=== PATIENT | male | born 1960 | race African-American/Black ===

== ENCOUNTER 2017-10-30 16:34 | Inpatient (IN) | payer OTHER ==
[2017-10-30 17:39] VITALS: BMI 21.2
--- NOTE | 2017-10-30 19:32 | HP ---
COWS - Scale Resting Pulse: 1= [place] 81-100 Sweatin= Chills/Flushing Restless Observation: 3= Extraneous Movement Pupil Size: 0= Normal to Room Light Bone or Joint Aches: 2= Severe Diffuse Aches Runny Nose/ Eye Tearin= Runny Nose/Eyes GI Upset > 30mins: 3= Vomiting/Diarrhea Tremor Observation: 2= Slight Tremor Visible Yawning Observation: 0= None Anxiety or Irritability: 2=Irritable/Anxious Goose Flesh Skin: 0=Smooth Skin COWS Score: 16 CIWA Score - CIWA Score Nausea/Vomitin Muscle Tremors: 4-Moderate,w/Arms Extend Anxiety: 4-Mod. Anxious/Guarded Agitation: 4-Moderately Restless Paroxysmal Sweats: 1-Minimal Palms Moist Orientation: 0-Oriented Tacttile Disturbances: 0-None Auditory Disturbances: 0-None Visual Disturbances: 0-None Headache: 0-None Present CIWA-Ar Total Score: 15 Admission ROS BHS - HPI Chief Complaint: WITHDRAWAL SX Allergies/Adverse Reactions: Allergies Allergy/AdvReac Type Severity Reaction Status Date / Time No Known Allergies Allergy Verified 10/30/17 18:48 History of Present Illness: 57 YEARS OLD MALE WITH LONG HISTORY OF ALCOHOL HEROIN NICOTINE DEPENDENC HAS HYPERTENSION AND DEPRESSION IS ADMITTED TO DETOX Exam Limitations: No Limitations - Ebola screening Have you traveled outside of the country in the last 21 days: No Have you had contact with anyone from an Ebola affected area: No Have you been sick,other than usual withdrawal symptoms: No Do you have a fever: No - Review of Systems Constitutional: Loss of Appetite, Changes in sleep, Unintentional Wgt. Loss, Unexplained wgt Loss EENT: reports: Blurred Vision (EYE GLASSES) Respiratory: reports: No Symptoms reported Cardiac: reports: No Symptoms Reported GI: reports: Diarrhea, Nausea, Poor Appetite, Poor Fluid Intake, Vomiting, Abdominal cramping : reports: No Symptoms Reported Musculoskeletal: reports: Back Pain, Joint Pain, Muscle Pain, Neck Pain Integumentary: reports: No Symptoms Reported Neuro: reports: Tremors Endocrine: reports: No Symptoms Reported Hematology: reports: No Symptoms Reported Psychiatric: reports: Judgement Intact, Orientated x3, Anxious, Depressed Other Systems: Reviewed and Negative Patient History - Patient Medical History Hx Anemia: No Hx Asthma: No Hx Chronic Obstructive Pulmonary Disease (COPD): No Hx Cancer: No Hx Cardiac Disorders: No Hx Congestive Heart Failure: No Hx Hypertension: Yes Hx Hypercholesterolemia: No Hx Pacemaker: No HX Cerebrovascular Accident: No Hx Seizures: No Hx Dementia: No Hx Diabetes: No Hx Gastrointestinal Disorders: No Hx Liver Disease: No Hx Genitourinary Disorders: No Hx Sexually Transmitted Disorders: No Hx Renal Disease (ESRD): No Hx Thyroid Disease: No Hx Human Immunodeficiency Virus (HIV): No Hx Hepatitis C: No Hx Depression: Yes Hx Suicide Attempt: No Hx Bipolar Disorder: No Hx Schizophrenia: No - Patient Surgical History Past Surgical History: Yes Hx Neurologic Surgery: Yes (2007 RIGHT PERIATAL) Hx Cataract Extraction: No Hx Cardiac Surgery: No Hx Lung Surgery: No Hx Breast Surgery: No Hx Breast Biopsy: No Hx Abdominal Surgery: No Hx Appendectomy: No Hx Cholecystectomy: No Hx Genitourinary Surgery: No Hx Orthopedic Surgery: Yes (RIGHT ANKLE 2006) Anesthesia Reaction: No - PPD History Previous Implant?: Yes Documented Results: Negative w/o proof Implanted On Prior R Admission?: No PPD to be Administered?: Yes - Smoking Cessation Smoking history: Current every day smoker Aproximately how many cigarettes per day: 5 Cigars Per Day: 0 Hx Chewing Tobacco Use: No Initiated information on smoking cessation: Yes 'Breaking Loose' booklet given: 10/30/17 - Substance & Tx. History Hx Alcohol Use: Yes Hx Substance Use: Yes Substance Use Type: Alcohol, Heroin Hx Substance Use Treatment: Yes (08/2017 [facility]) - Substances Abused Alcohol Route: Oral Frequency: Daily Amount used: beer - 6 pkX 40OZ Age of first use: 19 Date of Last Use: 10/30/17 Heroin Route: Inhalation Frequency: Daily Amount used: 5 bags Age of first use: 20 Date of Last Use: 10/29/17 Family Disease History - Family Disease History Family Disease History: CA: Father (), Respiratory: Mother (), Other: Father, Mother Admission Physical Exam BHS - Vital Signs Vital Signs: Vital Signs - 24 hr 10/30/17 17:36 Temperature 98.2 F Pulse Rate 85 Respiratory 18 Rate Blood Pressure 126/77 - Physical General Appearance: Yes: Appropriately Dressed, Mild Distress, Alcohol on Breath , Thin, Tremorous, Irritable, Sweating, Anxious HEENTM: Yes: Hearing grossly Normal, Normal ENT Inspection, Normocephalic, Normal Voice Respiratory: Yes: Chest Non-Tender, Lungs Clear, Normal Breath Sounds, No Respiratory Distress, No Accessory Muscle Use Neck: Yes: Supple, Trachea in good position Breast: Yes: Breasts Symetrical Cardiology: Yes: Regular Rhythm, Regular Rate, S1, S2 Abdominal: Yes: Non Tender, Soft, Increased Bowel Sounds Genitourinary: Yes: Within Normal Limits Back: Yes: Normal Inspection Musculoskeletal: Yes: full range of Motion, Gait Steady, Back pain, Muscle Pain Extremities: Yes: Normal Inspection, Normal Range of Motion, Non-Tender, Tremors Neurological: Yes: Fully Oriented, Alert, Motor Strength 5/5, Normal Response, Depressed Affect Integumentary: Yes: Warm Lymphatic: Yes: Within Normal Limits - Diagnostic (1) Alcohol dependence with uncomplicated withdrawal Current Visit: Yes Status: Acute (2) Opioid dependence with withdrawal Current Visit: Yes Status: Acute (3) Nicotine dependence Current Visit: Yes Status: Acute Qualifiers: Nicotine product type: cigarettes Substance use status: in withdrawal Qualified Code(s): F17.213 - Nicotine dependence, cigarettes, with withdrawal (4) Weight loss Current Visit: Yes Status: Acute (5) Asthma Current Visit: Yes Status: Chronic Qualifiers: Asthma severity: mild Asthma persistence: persistent Asthma complication type: with status asthmaticus Qualified Code(s): J45.32 - Mild persistent asthma with status asthmaticus (6) Depression (emotion) Current Visit: Yes Status: Suspected Qualifiers: Depression Type: dysthymia Qualified Code(s): F34.1 - Dysthymic disorder Cleared for Admission [facility] - Detox or Rehab [facility] Level of Care: Medically Managed Detox Regimen/Protocol: Methadone/Librium [facility] Breath Alcohol Content Breath Alcohol Content: 0.133 Urine Drug Screen - Results Drug Screen Negative: No Urine Drug Screen Results: OPI-Opiates
[2017-10-30] MEDS ORDERED: guaiFENesin/D-METHORPHAN HB 10 ML UNIT-DOSE CUPS PO PRN (19:39)
[2017-10-30] MEDS ORDERED: ACETAMINOPHEN 325 MG TABLET (FP) PO PRN (19:39)
[2017-10-30] MEDS ORDERED: METHADONE HCL 10 MG TABLET (FOR DETOX USE ONLY) PO ONE ×2 (19:39→23:00)
[2017-10-30] MEDS ORDERED: IBUPROFEN 400 MG TABLET (FP) PO PRN (19:39)
[2017-10-30] MEDS ORDERED: MENTHOL/PHENOL 1 EACH UD MM PRN (19:39)
[2017-10-30] MEDS ORDERED: LOPERAMIDE HCL 2 MG CAPSULE PO PRN (19:39)
[2017-10-30] MEDS ORDERED: MAGNESIUM HYDROX 2400MG/30ML ORAL SUSPENSION 30 ML CUP PO PRN (19:39)
[2017-10-30] MEDS ORDERED: P-EPHED 60MG/TRIPROLIDI 2.5MG TABLET PO PRN (19:39)
[2017-10-30] MEDS ORDERED: MAG HYDROX/AL HYDROX/SIMETH 30 ML UNIT-DOSE CUP PO PRN (19:39)
[2017-10-30] MEDS ORDERED: MAGNESIUM CITRATE 300 ML BOTTLE PO PRN (19:39)
[2017-10-30] MEDS ORDERED: NICOTINE POLACRILEX 2 MG GUM BC PRN (19:39)
[2017-10-30] MEDS ORDERED: ALBUTEROL SO4 18 GM HFA INHALER IH PRN (19:48)
[2017-10-30] MEDS ORDERED: ALBUTEROL SO4 2.5/IPRATROPIUM 0.5 INH SOL 3 ML VIAL.NEB. NEB PRN (19:49)
[2017-10-30] MEDS: METHOCARBAMOL 500 MG TABLET PO PRN (21:08)
[2017-10-30] MEDS: chlordiazePOXIDE HCL 25 MG CAPSULE PO PRN (21:08)
[2017-10-30] MEDS: chlordiazePOXIDE HCL 25 MG CAPSULE PO SCH (23:56)
[2017-10-30] MEDS: THIAMINE HCL 100 MG TABLET (FP) PO SCH (23:57)
[2017-10-31 01:14] LABS: URINE APPEARANCE CLEAR; URINE BILIRUBIN NEGATIVE (NEGATIVE); URINE BLOOD NEGATIVE (NEGATIVE); URINE COLOR LTYELLOW; URINE GLUCOSE (UA) NEGATIVE (NEGATIVE); URINE KETONE NEGATIVE (NEGATIVE); URINE LEUK ESTERASE NEGATIVE (NEGATIVE); URINE NITRITE NEGATIVE (NEGATIVE); URINE PROTEIN NEGATIVE (NEGATIVE); URINE UROBILINOGEN NEGATIVE mg/dL (0.2-1.0)
[2017-10-31] MEDS: chlordiazePOXIDE HCL 25 MG CAPSULE PO SCH ×4 (05:37→22:31)
[2017-10-31] MEDS: METHOCARBAMOL 500 MG TABLET PO PRN (06:30)
--- NOTE | 2017-10-31 07:44 | CONSULT ---
[facility] Psychiatric Consult - Data Date of interview: 10/31/17 Admission source: [facility] Identifying data: This is 57 years old female with no psychiatric hospitalization history intoxicated woth Alcohol, Opioids and Nicotine Substance Abuse History: Smoking history: Current every day smoker. Aproximately how many cigarettes per day: 5. Cigars Per Day: 0. Hx Chewing Tobacco Use: No. Initiated information on smoking cessation: Yes. 'Breaking Loose' booklet given: 10/30/17. - Substance & Tx. History. Hx Alcohol Use: Yes. Hx Substance Use: Yes. Substance Use Type: Alcohol, Heroin. Hx Substance Use Treatment: Yes (08/2017 [facility]). - Substances Abused. Alcohol. Route: Oral. Frequency: Daily. Amount used: beer - 6 pkX 40OZ. Age of first use: 19. Date of Last Use: 10/30/17. Heroin. Route: Inhalation. Frequency: Daily. Amount used: 5 bags. Age of first use: 20. Date of Last Use: 10/29/17 Medical History: Weight loss, Asthma Psychiatric History: Denies past psychiatric history Physical/Sexual Abuse/Trauma History: Denies Additional Comment: Obsedrvation. Detox Unit Care Protocol Mental Status Exam - Mental Status Exam Alert and Oriented to: Person Cognitive Function: Fair Patient Appearance: Unkempt Mood: Sad Affect: Flat Patient Behavior: Sedated Speech Pattern: Delayed Voice Loudness: Mildly Soft/Quiet Thought Process: Circumstantial Thought Disorder: Being Controlled Hallucinations: Denies Suicidal Ideation: Denies Homicidal Ideation: Denies Insight/Judgement: Fair Sleep: Difficulty falling asleep Appetite: Weight loss Muscle strength/Tone: Mild Hypotonicity Gait/Station: Shuffling Additional Comments: Obsedrvation. Detox Unit Care Protocol Psychiatric Findings - Problem List ([place] 1, 2,3) (1) Drug-induced mood disorder Current Visit: Yes Status: Suspected (2) Weight loss Current Visit: Yes Status: Acute (3) Alcohol dependence with uncomplicated withdrawal Current Visit: Yes Status: Chronic (4) Nicotine dependence Current Visit: Yes Status: Chronic Qualifiers: Nicotine product type: cigarettes Substance use status: uncomplicated Qualified Code(s): F17.210 - Nicotine dependence, cigarettes, uncomplicated (5) Opioid dependence with withdrawal Current Visit: Yes Status: Chronic - Initial Treatment Plan Initial Treatment Plan: Obsedrvation. Detox Unit Care Protocol
[2017-10-31 09:54] LABS: MCH 28.1 pg (25.7-33.7); MCHC 33.3 g/dl (32.0-35.9); MEAN CELL VOLUME 84.3 fl (80-96); MEAN PLT VOLUME 9.6 fl (7.5-11.1); PLATELET COUNT 220 K/MM3 (134-434); RDW 14.7 % (11.9-15.9); WHITE BLOOD COUNT 6.9 K/mm3 (4.0-10.0)
--- NOTE | 2017-10-31 09:54 | PN ---
[facility] CIWA - CIWA Score Nausea/Vomitin-No Nausea/No Vomiting Muscle Tremors: 4-Moderate,w/Arms Extend Anxiety: 4-Mod. Anxious/Guarded Agitation: 4-Moderately Restless Paroxysmal Sweats: 3 Orientation: 0-Oriented Tacttile Disturbances: 0-None Auditory Disturbances: 0-None Visual Disturbances: 0-None Headache: 1-Very Mild CIWA-Ar Total Score: 16 BHS COWS - Scale Resting Pulse: 2= [place] 101-120 Sweatin= Chills/Flushing Restless Observation: 0= Sits Still Pupil Size: 0= Normal to Room Light Bone or Joint Aches: 2= Severe Diffuse Aches Runny Nose/ Eye Tearin= Nasal Congestion GI Upset > 30mins: 2= Nausea/Diarrhea Tremor Observation of Outstretched Hands: 2= Slight Tremor Visible Yawning Observation: 2= >3x During Session Anxiety or Irritability: 2=Irritable/Anxious Goose Flesh Skin: 0=Smooth Skin COWS Score: 14 S Progress Note (SOAP) Subjective: interrupted sleep sweats shakes anxiety diarrhea Objective: 10/31/17 09:56 Vital Signs Temperature 99.1 F 10/31/17 09:32 Pulse Rate 102 H 10/31/17 09:32 Respiratory Rate 18 10/31/17 09:32 Blood Pressure 148/93 10/31/17 09:32 O2 Sat by Pulse Oximetry (%) Laboratory Tests 10/30/17 21:56 Urine Color Ltyellow Urine Appearance Clear Urine pH 5.0 Ur Specific [place] 1.004 Urine Protein Negative Urine Glucose (UA) Negative Urine Ketones Negative Urine Blood Negative Urine Nitrite Negative Urine Bilirubin Negative Urine Urobilinogen Negative labs pending aaox3 ambulating no acute distress Assessment: 10/31/17 09:57 withdrawal sx Plan: continue detox increase fluids labs pending
[2017-10-31] MEDS ORDERED: METHADONE HCL 10 MG TABLET (FOR DETOX USE ONLY) PO SCH (10:00)
[2017-10-31] MEDS: amLODIPine BESYLATE 10 MG TABLET (FP) PO SCH (10:17)
[2017-10-31] MEDS: HYDROCHLOROTHIAZIDE 12.5 MG CAPSULE (FP) PO SCH (10:17)
[2017-10-31] MEDS: PRENATAL VITAMINS W/ FOLIC ACID TABLET (FP) PO SCH (10:17)
[2017-10-31] MEDS: NICOTINE 14 MG/24 HOURS TOPICAL PATCH TD SCH (10:18)
[2017-10-31] MEDS: LIDOCAINE 5% TOPICAL PATCH TP SCH (10:21)
[2017-10-31 10:26] LABS: ALBUMIN 3.7 g/dl (3.4-5.0); ALK PHOS 102 U/L (45-117); ANION GAP 12 (8-16); BILIRUBIN,TOTAL 1.2 mg/dL (0.2-1.0); CALCIUM 9.3 mg/dL (8.5-10.1); CO2 29 mmol/L (21-32); CREATININE 0.6 mg/dL (0.7-1.3); GLUCOSE,RANDOM 81 mg/dL (74-106); SGOT/AST 112 U/L (15-37); SGPT/ALT 64 U/L (12-78); TOT PROT 7.5 g/dl (6.4-8.2)
[2017-10-31 13:24] LABS: URINE LEUK ESTERASE Negative (NEGATIVE)
--- NOTE | 2017-10-31 16:35 | EKG ---
Test Reason : Blood Pressure : / mmHG Vent. Rate : 082 BPM Atrial Rate : 082 BPM P-R Int : 158 ms QRS Dur : 096 ms QT Int : 408 ms P-R-T Axes : 072 042 067 degrees QTc Int : 476 ms NORMAL SINUS RHYTHM NONSPECIFIC T WAVE ABNORMALITY PROLONGED QT ABNORMAL ECG NO PREVIOUS ECGS AVAILABLE Confirmed by CHARLI ZARATE MD ([id number]) on 10/31/2017 4:35:17 PM Referred By: Confirmed By:CHARLI ZARATE MD
[2017-10-31] MEDS: THIAMINE HCL 100 MG TABLET (FP) PO SCH (22:31)
[2017-10-31] MEDS: LIDOCAINE PATCH REMOVAL MC SCH (22:33)
[2017-11-01] MEDS: chlordiazePOXIDE HCL 25 MG CAPSULE PO SCH ×3 (05:38→16:49)
[2017-11-01] MEDS: PRENATAL VITAMINS W/ FOLIC ACID TABLET (FP) PO SCH (10:26)
[2017-11-01] MEDS: HYDROCHLOROTHIAZIDE 12.5 MG CAPSULE (FP) PO SCH (10:26)
[2017-11-01] MEDS: amLODIPine BESYLATE 10 MG TABLET (FP) PO SCH (10:26)
[2017-11-01] MEDS: METHADONE HCL 5 MG TABLET (FOR DETOX USE ONLY) PO SCH (10:27)
[2017-11-01] MEDS: NICOTINE 14 MG/24 HOURS TOPICAL PATCH TD SCH (10:28)
[2017-11-01] MEDS: METHOCARBAMOL 500 MG TABLET PO PRN ×2 (10:31→16:51)
[2017-11-01] MEDS: LIDOCAINE 5% TOPICAL PATCH TP SCH (10:32)
--- NOTE | 2017-11-01 12:16 | PN ---
[facility] CIWA - CIWA Score Nausea/Vomitin-No Nausea/No Vomiting Muscle Tremors: 4-Moderate,w/Arms Extend Anxiety: 3 Agitation: 4-Moderately Restless Paroxysmal Sweats: 3 Orientation: 0-Oriented Tacttile Disturbances: 0-None Auditory Disturbances: 0-None Visual Disturbances: 0-None Headache: 0-None Present CIWA-Ar Total Score: 14 BHS COWS - Scale Resting Pulse: 0= [place] 80 or Below Sweatin=Flushed/Facial Moisture Restless Observation: 1= Difficult to Sit Still Pupil Size: 0= Normal to Room Light Bone or Joint Aches: 2= Severe Diffuse Aches Runny Nose/ Eye Tearin= Runny Nose/Eyes GI Upset > 30mins: 1= Stomach Cramp Tremor Observation of Outstretched Hands: 2= Slight Tremor Visible Yawning Observation: 2= >3x During Session Anxiety or Irritability: 2=Irritable/Anxious Goose Flesh Skin: 0=Smooth Skin COWS Score: 14 [facility] Progress Note (SOAP) Subjective: shakes sweats chronic back pain body aches irritable Objective: 11/01/17 12:14 Vital Signs Temperature 96.6 F L 11/01/17 06:00 Pulse Rate 73 11/01/17 06:00 Respiratory Rate 18 11/01/17 06:00 Blood Pressure 138/76 11/01/17 06:00 O2 Sat by Pulse Oximetry (%) Laboratory Tests 10/30/17 10/30/17 10/31/17 07:00 21:56 07:00 WBC 6.9 RBC 4.51 Hgb 12.7 Hct 38.0 MCV 84.3 MCH 28.1 MCHC 33.3 RDW 14.7 Plt Count 220 MPV 9.6 Sodium Potassium Chloride Carbon Dioxide Anion Gap BUN Creatinine Creat Clearance w eGFR Random Glucose Calcium Total Bilirubin AST ALT Alkaline Phosphatase Total Protein Albumin Urine Color Ltyellow Urine Appearance Clear Urine pH 5.0 Ur Specific [place] 1.004 Urine Protein Negative Urine Glucose (UA) Negative Urine Ketones Negative Urine Blood Negative Urine Nitrite Negative Urine Bilirubin Negative Urine Urobilinogen Negative Ur Leukocyte Esterase Negative RPR Titer Hepatitis C Antibody >11.0 H 10/31/17 10/31/17 07:00 07:00 WBC RBC Hgb Hct MCV MCH MCHC RDW Plt Count MPV Sodium 141 Potassium 3.6 Chloride 100 Carbon Dioxide 29 Anion Gap 12 BUN 8 Creatinine 0.6 L Creat Clearance w eGFR > 60 Random Glucose 81 Calcium 9.3 Total Bilirubin 1.2 H AST 112 H ALT 64 Alkaline Phosphatase 102 Total Protein 7.5 Albumin 3.7 Urine Color Urine Appearance Urine pH Ur Specific [place] Urine Protein Urine Glucose (UA) Urine Ketones Urine Blood Urine Nitrite Urine Bilirubin Urine Urobilinogen Ur Leukocyte Esterase RPR Titer Nonreactive Hepatitis C Antibody aaox3 ambulating no acute distress Assessment: 11/01/17 12:14 withdrawal sx Plan: continue detox increase fluids tylenol prn lidocaine patch cane ordered
[2017-11-01] MEDS ORDERED: diphenhydrAMINE HCL 25 MG CAPSULE (FP) PO PRN (12:49)
[2017-11-01] MEDS ORDERED: diphenhydrAMINE HCL 50 MG CAPSULE PO PRN (14:19)
[2017-11-01] MEDS: chlordiazePOXIDE HCL 25 MG CAPSULE PO PRN (14:42)
[2017-11-01] MEDS: THIAMINE HCL 100 MG TABLET (FP) PO SCH (22:19)
[2017-11-01] MEDS: chlordiazePOXIDE 5 MG CAPSULE PO SCH (22:19)
[2017-11-01] MEDS: LIDOCAINE PATCH REMOVAL MC SCH (22:21)
[2017-11-02] MEDS: chlordiazePOXIDE 5 MG CAPSULE PO SCH ×3 (06:27→17:31)
[2017-11-02] MEDS: LIDOCAINE 5% TOPICAL PATCH TP SCH (09:55)
[2017-11-02] MEDS: METHADONE HCL 5 MG TABLET (FOR DETOX USE ONLY) PO SCH (10:04)
[2017-11-02] MEDS: amLODIPine BESYLATE 10 MG TABLET (FP) PO SCH (10:04)
[2017-11-02] MEDS: PRENATAL VITAMINS W/ FOLIC ACID TABLET (FP) PO SCH (10:04)
[2017-11-02] MEDS: HYDROCHLOROTHIAZIDE 12.5 MG CAPSULE (FP) PO SCH (10:04)
[2017-11-02] MEDS: NICOTINE 14 MG/24 HOURS TOPICAL PATCH TD SCH (10:05)
[2017-11-02] MEDS: chlordiazePOXIDE HCL 25 MG CAPSULE PO PRN (12:59)
--- NOTE | 2017-11-02 19:04 | PN ---
BHS Progress Note (SOAP) Subjective: Sweating,interrupted sleep,restless Objective: 11/02/17 19:02 Vital Signs - 8 hr 11/02/17 15:40 Temperature 97.7 F Pulse Rate 88 Respiratory 20 Rate Blood Pressure 117/76 Laboratory Tests 10/30/17 10/30/17 10/31/17 07:00 21:56 07:00 WBC 6.9 RBC 4.51 Hgb 12.7 Hct 38.0 MCV 84.3 MCH 28.1 MCHC 33.3 RDW 14.7 Plt Count 220 MPV 9.6 Sodium Potassium Chloride Carbon Dioxide Anion Gap BUN Creatinine Creat Clearance w eGFR Random Glucose Calcium Total Bilirubin AST ALT Alkaline Phosphatase Total Protein Albumin Urine Color Ltyellow Urine Appearance Clear Urine pH 5.0 Ur Specific [place] 1.004 Urine Protein Negative Urine Glucose (UA) Negative Urine Ketones Negative Urine Blood Negative Urine Nitrite Negative Urine Bilirubin Negative Urine Urobilinogen Negative Ur Leukocyte Esterase Negative RPR Titer Hepatitis C Antibody >11.0 H 10/31/17 10/31/17 07:00 07:00 WBC RBC Hgb Hct MCV MCH MCHC RDW Plt Count MPV Sodium 141 Potassium 3.6 Chloride 100 Carbon Dioxide 29 Anion Gap 12 BUN 8 Creatinine 0.6 L Creat Clearance w eGFR > 60 Random Glucose 81 Calcium 9.3 Total Bilirubin 1.2 H AST 112 H ALT 64 Alkaline Phosphatase 102 Total Protein 7.5 Albumin 3.7 Urine Color Urine Appearance Urine pH Ur Specific [place] Urine Protein Urine Glucose (UA) Urine Ketones Urine Blood Urine Nitrite Urine Bilirubin Urine Urobilinogen Ur Leukocyte Esterase RPR Titer Nonreactive Hepatitis C Antibody labs noted Assessment: 11/02/17 19:03 Withdrawal sx. Plan: Continue detox
[2017-11-02] MEDS: chlordiazePOXIDE HCL 10 MG CAPSULE PO SCH (22:11)
[2017-11-02] MEDS: THIAMINE HCL 100 MG TABLET (FP) PO SCH (22:11)
[2017-11-02] MEDS: METHOCARBAMOL 500 MG TABLET PO PRN (22:11)
[2017-11-02] MEDS: LIDOCAINE PATCH REMOVAL MC SCH (22:54)
[2017-11-03] MEDS: chlordiazePOXIDE HCL 10 MG CAPSULE PO SCH ×3 (05:41→17:20)
[2017-11-03] MEDS ORDERED: METHADONE HCL 10 MG TABLET (FOR DETOX USE ONLY) PO SCH (10:00)
--- NOTE | 2017-11-03 10:20 | PN ---
BHS Progress Note (SOAP) Subjective: Sweating,interrupted sleep,restless Objective: 11/03/17 10:19 Vital Signs - 8 hr 11/03/17 11/03/17 03:30 07:10 Temperature 97 F L Pulse Rate 73 Respiratory 18 18 Rate Blood Pressure 102/60 Laboratory Tests 10/30/17 10/30/17 10/31/17 07:00 21:56 07:00 WBC 6.9 RBC 4.51 Hgb 12.7 Hct 38.0 MCV 84.3 MCH 28.1 MCHC 33.3 RDW 14.7 Plt Count 220 MPV 9.6 Sodium Potassium Chloride Carbon Dioxide Anion Gap BUN Creatinine Creat Clearance w eGFR Random Glucose Calcium Total Bilirubin AST ALT Alkaline Phosphatase Total Protein Albumin Urine Color Ltyellow Urine Appearance Clear Urine pH 5.0 Ur Specific [place] 1.004 Urine Protein Negative Urine Glucose (UA) Negative Urine Ketones Negative Urine Blood Negative Urine Nitrite Negative Urine Bilirubin Negative Urine Urobilinogen Negative Ur Leukocyte Esterase Negative RPR Titer Hepatitis C Antibody >11.0 H 10/31/17 10/31/17 07:00 07:00 WBC RBC Hgb Hct MCV MCH MCHC RDW Plt Count MPV Sodium 141 Potassium 3.6 Chloride 100 Carbon Dioxide 29 Anion Gap 12 BUN 8 Creatinine 0.6 L Creat Clearance w eGFR > 60 Random Glucose 81 Calcium 9.3 Total Bilirubin 1.2 H AST 112 H ALT 64 Alkaline Phosphatase 102 Total Protein 7.5 Albumin 3.7 Urine Color Urine Appearance Urine pH Ur Specific [place] Urine Protein Urine Glucose (UA) Urine Ketones Urine Blood Urine Nitrite Urine Bilirubin Urine Urobilinogen Ur Leukocyte Esterase RPR Titer Nonreactive Hepatitis C Antibody labs noted Assessment: 11/03/17 10:19 Withdrawal sx. Laboratory Tests 10/30/17 10/30/17 10/31/17 07:00 21:56 07:00 WBC 6.9 RBC 4.51 Hgb 12.7 Hct 38.0 MCV 84.3 MCH 28.1 MCHC 33.3 RDW 14.7 Plt Count 220 MPV 9.6 Sodium Potassium Chloride Carbon Dioxide Anion Gap BUN Creatinine Creat Clearance w eGFR Random Glucose Calcium Total Bilirubin AST ALT Alkaline Phosphatase Total Protein Albumin Urine Color Ltyellow Urine Appearance Clear Urine pH 5.0 Ur Specific [place] 1.004 Urine Protein Negative Urine Glucose (UA) Negative Urine Ketones Negative Urine Blood Negative Urine Nitrite Negative Urine Bilirubin Negative Urine Urobilinogen Negative Ur Leukocyte Esterase Negative RPR Titer Hepatitis C Antibody >11.0 H 10/31/17 10/31/17 07:00 07:00 WBC RBC Hgb Hct MCV MCH MCHC RDW Plt Count MPV Sodium 141 Potassium 3.6 Chloride 100 Carbon Dioxide 29 Anion Gap 12 BUN 8 Creatinine 0.6 L Creat Clearance w eGFR > 60 Random Glucose 81 Calcium 9.3 Total Bilirubin 1.2 H AST 112 H ALT 64 Alkaline Phosphatase 102 Total Protein 7.5 Albumin 3.7 Urine Color Urine Appearance Urine pH Ur Specific [place] Urine Protein Urine Glucose (UA) Urine Ketones Urine Blood Urine Nitrite Urine Bilirubin Urine Urobilinogen Ur Leukocyte Esterase RPR Titer Nonreactive Hepatitis C Antibody labs noted Plan: Continue detox
[2017-11-03] MEDS: amLODIPine BESYLATE 10 MG TABLET (FP) PO SCH (10:44)
[2017-11-03] MEDS: PRENATAL VITAMINS W/ FOLIC ACID TABLET (FP) PO SCH (10:44)
[2017-11-03] MEDS: HYDROCHLOROTHIAZIDE 12.5 MG CAPSULE (FP) PO SCH (10:44)
[2017-11-03] MEDS: LIDOCAINE 5% TOPICAL PATCH TP SCH (10:45)
[2017-11-03] MEDS: NICOTINE 14 MG/24 HOURS TOPICAL PATCH TD SCH (10:45)
[2017-11-03] MEDS: THIAMINE HCL 100 MG TABLET (FP) PO SCH (22:21)
[2017-11-03] MEDS: LIDOCAINE PATCH REMOVAL MC SCH (22:39)
[2017-11-04] MEDS ORDERED: METHADONE HCL 5 MG TABLET (FOR DETOX USE ONLY) PO SCH (06:00)
[2017-11-04] MEDS: PRENATAL VITAMINS W/ FOLIC ACID TABLET (FP) PO SCH (10:30)
[2017-11-04] MEDS: amLODIPine BESYLATE 10 MG TABLET (FP) PO SCH (10:30)
[2017-11-04] MEDS: HYDROCHLOROTHIAZIDE 12.5 MG CAPSULE (FP) PO SCH (10:30)
[2017-11-04] MEDS: LIDOCAINE 5% TOPICAL PATCH TP SCH (10:31)
[2017-11-04] MEDS: NICOTINE 14 MG/24 HOURS TOPICAL PATCH TD SCH (10:31)
--- NOTE | 2017-11-04 12:19 | PN ---
BHS Progress Note (SOAP) Subjective: INTERRUPTED SLEEP, SWEATS, RT ANKLE UNSTEADY Objective: 11/04/17 12:20 Vital Signs Temperature 98.3 F 11/04/17 09:35 Pulse Rate 111 H 11/04/17 09:35 Respiratory Rate 18 11/04/17 09:35 Blood Pressure 117/74 11/04/17 09:35 O2 Sat by Pulse Oximetry (%) Laboratory Tests 10/30/17 10/30/17 10/31/17 07:00 21:56 07:00 WBC 6.9 RBC 4.51 Hgb 12.7 Hct 38.0 MCV 84.3 MCH 28.1 MCHC 33.3 RDW 14.7 Plt Count 220 MPV 9.6 Sodium Potassium Chloride Carbon Dioxide Anion Gap BUN Creatinine Creat Clearance w eGFR Random Glucose Calcium Total Bilirubin AST ALT Alkaline Phosphatase Total Protein Albumin Urine Color Ltyellow Urine Appearance Clear Urine pH 5.0 Ur Specific [place] 1.004 Urine Protein Negative Urine Glucose (UA) Negative Urine Ketones Negative Urine Blood Negative Urine Nitrite Negative Urine Bilirubin Negative Urine Urobilinogen Negative Ur Leukocyte Esterase Negative RPR Titer Hepatitis C Antibody >11.0 H 10/31/17 10/31/17 07:00 07:00 WBC RBC Hgb Hct MCV MCH MCHC RDW Plt Count MPV Sodium 141 Potassium 3.6 Chloride 100 Carbon Dioxide 29 Anion Gap 12 BUN 8 Creatinine 0.6 L Creat Clearance w eGFR > 60 Random Glucose 81 Calcium 9.3 Total Bilirubin 1.2 H AST 112 H ALT 64 Alkaline Phosphatase 102 Total Protein 7.5 Albumin 3.7 Urine Color Urine Appearance Urine pH Ur Specific [place] Urine Protein Urine Glucose (UA) Urine Ketones Urine Blood Urine Nitrite Urine Bilirubin Urine Urobilinogen Ur Leukocyte Esterase RPR Titer Nonreactive Hepatitis C Antibody PT AOX3 IN NAD AMBULATING WITH A CANE -UNSTEADY Assessment: 11/04/17 12:21 WITHDRAWAL SX'S UNSEADY GAIT 2ND ANKLE , BACK ISSUES, NEEDS WHEELCHAIR. 11/04/17 12:23 Plan: CONT. DETOX INCREASE FLUIDS WC D/C IN AM
[2017-11-04] MEDS: LIDOCAINE PATCH REMOVAL MC SCH (22:23)
[2017-11-04] MEDS: THIAMINE HCL 100 MG TABLET (FP) PO SCH (22:23)
[2017-11-04] MEDS: METHOCARBAMOL 500 MG TABLET PO PRN (22:23)
[2017-11-05 06:08] VITALS: BP 106/59; PULSE 76; TEMP 98.2
[2017-11-05] MEDS: PRENATAL VITAMINS W/ FOLIC ACID TABLET (FP) PO SCH (09:13)
[2017-11-05] MEDS: METHOCARBAMOL 500 MG TABLET PO PRN (09:13)
[2017-11-05] MEDS: HYDROCHLOROTHIAZIDE 12.5 MG CAPSULE (FP) PO SCH (09:14)
[2017-11-05] MEDS: amLODIPine BESYLATE 10 MG TABLET (FP) PO SCH (09:14)
--- NOTE | 2017-11-05 10:54 | PN ---
BHS Progress Note Note: Pt. discharge from [facility] detox.
--- NOTE | 2017-11-05 12:10 | DS ---
[facility] Detox Discharge Summary Admission Date: 10/30/17 Discharge Date: 11/05/17 - History Present History: Alcohol Dependence, Opioid Dependence Pertinent Past History: Asthma - Physical Exam Results Vital Signs: Vital Signs Temperature 98.2 F 11/05/17 06:00 Pulse Rate 76 11/05/17 06:00 Respiratory Rate 18 11/05/17 06:00 Blood Pressure 106/59 11/05/17 06:00 O2 Sat by Pulse Oximetry (%) Pertinent Admission Physical Exam Findings: Withdrawal symptoms Laboratory Tests 10/30/17 10/30/17 10/31/17 07:00 21:56 07:00 WBC 6.9 RBC 4.51 Hgb 12.7 Hct 38.0 MCV 84.3 MCH 28.1 MCHC 33.3 RDW 14.7 Plt Count 220 MPV 9.6 Sodium Potassium Chloride Carbon Dioxide Anion Gap BUN Creatinine Creat Clearance w eGFR Random Glucose Calcium Total Bilirubin AST ALT Alkaline Phosphatase Total Protein Albumin Urine Color Ltyellow Urine Appearance Clear Urine pH 5.0 Ur Specific [place] 1.004 Urine Protein Negative Urine Glucose (UA) Negative Urine Ketones Negative Urine Blood Negative Urine Nitrite Negative Urine Bilirubin Negative Urine Urobilinogen Negative Ur Leukocyte Esterase Negative RPR Titer Hepatitis C Antibody >11.0 H 10/31/17 10/31/17 07:00 07:00 WBC RBC Hgb Hct MCV MCH MCHC RDW Plt Count MPV Sodium 141 Potassium 3.6 Chloride 100 Carbon Dioxide 29 Anion Gap 12 BUN 8 Creatinine 0.6 L Creat Clearance w eGFR > 60 Random Glucose 81 Calcium 9.3 Total Bilirubin 1.2 H AST 112 H ALT 64 Alkaline Phosphatase 102 Total Protein 7.5 Albumin 3.7 Urine Color Urine Appearance Urine pH Ur Specific [place] Urine Protein Urine Glucose (UA) Urine Ketones Urine Blood Urine Nitrite Urine Bilirubin Urine Urobilinogen Ur Leukocyte Esterase RPR Titer Nonreactive Hepatitis C Antibody Labs noted - Treatment Hospital Course: Detox Protocol Followed, Detoxed Safely, Responded well, Discharged Condition Good - Medication Discharge Medications: Ambulatory Orders Albuterol Sulfate Inhaler - [Ventolin Hfa Inhaler -] 2 inh PO Q4H 10/30/17 Amlodipine Besylate [Norvasc -] 10 mg PO DAILY 10/30/17 Hydrochlorothiazide 12.5 mg PO DAILY 10/30/17 - Diagnosis (1) Alcohol dependence with uncomplicated withdrawal Status: Acute (2) Asthma Status: Chronic Qualifiers: Asthma severity: mild Asthma persistence: persistent Asthma complication type: with status asthmaticus Qualified Code(s): J45.32 - Mild persistent asthma with status asthmaticus (3) Nicotine dependence Status: Chronic Qualifiers: Nicotine product type: cigarettes Substance use status: uncomplicated Qualified Code(s): F17.210 - Nicotine dependence, cigarettes, uncomplicated (4) Opioid dependence with withdrawal Status: Acute (5) Depression (emotion) Status: Chronic Qualifiers: Depression Type: dysthymia Qualified Code(s): F34.1 - Dysthymic disorder - AMA Did Patient Leave Against Medical Advice: No (F/U with PCP in 1 week)
== END 2017-11-05 09:38 | disposition home or self-care (01) | DRG 773 ==
LOC: YASAS 16:34 → Y6N 19:25
PROVIDERS: ADMIT Internal Medicine; ATTEND Internal Medicine
PROC: HZ2ZZZZ Detoxification Services for Substance Abuse Treatment (ICD-10-PCS; principal; 2017-11-05)
DX: F11.23 Opioid dependence with withdrawal (principal); F10.230 Alcohol dependence with withdrawal, uncomplicated; F17.210 Nicotine dependence, cigarettes, uncomplicated; F34.1 Dysthymic disorder; F19.24 Other psychoactive substance dependence with psychoactive substance-induced mood disorder; J45.32 Mild persistent asthma with status asthmaticus; R63.4 Abnormal weight loss; Z68.21 Body mass index [BMI] 21.0-21.9, adult
CPT/HCPCS: 36415; 80053; 81003; 85027; 86593; 86803; 87522; 93005; 93010